=== PATIENT | female | born 1955 | race Caucasian/White ===

== ENCOUNTER 2019-05-12 14:05 | Emergency (ER) | payer OTHER ==
[2019-05-12] MEDS ORDERED: Lorazepam 1 MG TAB ONE (15:17)
== END 2019-05-12 17:02 | disposition home or self-care (01) ==
LOC: ERS 14:05
DX: I10 Essential (primary) hypertension (principal); J45.909 Unspecified asthma, uncomplicated; V49.9XXA Car occupant (driver) (passenger) injured in unspecified traffic accident, initial encounter
CPT/HCPCS: 99283